=== PATIENT | male | born 2000 | race Caucasian/White ===

== ENCOUNTER 2020-08-08 13:10 | Emergency (ER) | payer OTHER ==
[2020-08-08 13:23] VITALS: BP 140/80
--- NOTE | 2020-08-08 13:37 | ED Physician Documentation ---
History of Present Illness - Stated complaint Stated Complaint: TAIL BONE PX - Chief complaint Chief Complaint: General - History obtained from History obtained from: Patient - Additonal information Additional information: Painful swollen area at the top of the tailbone for about 8 days. No fevers or chills. No history of similar prior issue. He was [place] the [place] and reportedly told that they could not do the procedure till Saturday so was referred here. Review of Systems Constitutional: denies: Fever, Chills Nose: reports: Reviewed and negative Cardiac: reports: Reviewed and negative Respiratory: reports: Reviewed and negative PD PAST MEDICAL HISTORY - Past Medical History Past Medical History: No - Past Surgical History Past Surgical History: No - Present Medications Home Medications: Ambulatory Orders Medication Instructions Recorded Confirmed HYDROcod/ACETAM 5/325 [[place] 5/325] 1 - 2 tab PO Q6H PRN #10 tablet 08/08/20 - Allergies Allergies/Adverse Reactions: Allergies Allergy/AdvReac Type Severity Reaction Status Date / Time No Known Drug Allergies Allergy Verified 08/08/20 13:19 - Social History Does the pt smoke?: No Smoking Status: Never smoker Does the pt drink ETOH?: Yes Does the pt have substance abuse?: No - Immunizations Immunizations are current?: Yes - POLST Patient has POLST: No PD ED PE NORMAL - Vitals Vital signs reviewed: Yes - General General: Alert and oriented X 3, No acute distress - Derm Derm: Other (Large pointed pilonidal cyst top of gluteal crease) - Neuro Neuro: Alert and oriented X 3, Normal speech Results - Vitals Vitals: Vital Signs - 24 hr 08/08/20 13:19 Temperature 36.5 C Heart Rate 85 Respiratory 16 Rate Blood Pressure 140/80 H O2 Saturation 98 Oxygen O2 Source Room air Procedures - Abscess I&D (location) Pilonidal Preparation: Alcohol, Lidocaine 1% Incision: Incised with scalpel, Purulent drainage, Loculations broken, Packed (with 1/4 inch packing) Other: Pt tolerated well, Dressing applied. No: Antibiotic prescribed (per current UTDOL guidelines) Departure - Departure Disposition: Home, Self Care Clinical Impression: Pilonidal cyst with abscess Condition: Good Record reviewed to determine appropriate education?: Yes Instructions: ED Cyst Pilonidal Infected IandD Prescriptions: HYDROcod/ACETAM 5/325 [[place] 5/325] 1 - 2 tab PO Q6H PRN #10 tablet PRN Reason: Pain Comments: Remove packing in 2 days (just yank in the shower). [place]. Explore surgical referral when better for definitive treatment. Forms: Activity restrictions Discharge Date/Time: 08/08/20 13:59
[2020-08-08] MEDS ORDERED: HYDROcod/ACETAM 5/325 MG TABLET PO STA (13:45)
== END 2020-08-08 13:59 | disposition home or self-care (01) ==
LOC: ED 13:10
DX: L05.01 Pilonidal cyst with abscess (principal)
CPT/HCPCS: 10081; 99282; 99283; A9270

== ENCOUNTER 2021-07-18 08:27 | Emergency (ER) | payer OTHER ==
[2021-07-18] MEDS ORDERED: LIDOCAINE 1% 2 ML VIAL TD STA (09:09)
--- NOTE | 2021-07-18 09:34 | ED Physician Documentation ---
History of Present Illness - Stated complaint Stated Complaint: LOWER BACK PX - Chief complaint Chief Complaint: Wound - History obtained from History obtained from: Patient - History of Present Illness Timing: How many days ago (3-4) - Additonal information Additional information: 21-year-old male with a prior history of pilonidal cyst has developed swelling o vaughn his tailbone over the past 3 to 4 days and over the past 2 days the pain has become intolerable. He is having some difficulty sitting. He has had this drained previously and has not sought surgical care. Review of Systems Constitutional: denies: Fever Respiratory: denies: Cough GI: denies: Vomiting : denies: Dysuria Musculoskeletal: denies: Neck pain, Back pain Neurologic: denies: Generalized weakness, Focal weakness, Numbness PD PAST MEDICAL HISTORY - Past Medical History Past Medical History: Yes Cardiovascular: None Respiratory: None Neuro: None Endocrine/Autoimmune: None GI: None : None HEENT: None Psych: None Musculoskeletal: None Derm: None - Past Surgical History Past Surgical History: No - Present Medications Home Medications: Ambulatory Orders Medication Instructions Recorded Confirmed HYDROcod/ACETAM 5/325 [[place] 5/325] 1 - 2 tablet PO Q6H PRN #14 tablet 07/18/21 Sulfamethox/Trimeth 800/160 1 each PO BID #14 tablet 07/18/21 [Bactrim Ds] - Allergies Allergies/Adverse Reactions: Allergies Allergy/AdvReac Type Severity Reaction Status Date / Time No Known Drug Allergies Allergy Verified 08/08/20 13:19 - Social History Does the pt smoke?: Yes Smoking Status: Current some day smoker Does the pt drink ETOH?: Yes Does the pt have substance abuse?: No - Immunizations Immunizations are current?: Yes - POLST Patient has POLST: No PD ED PE NORMAL - Vitals Vital signs reviewed: Yes (hypertensive ) - General General: Alert and oriented X 3, No acute distress, Well developed/nourished - HEENT HEENT: Atraumatic, PERRL, EOMI - Neck Neck: Supple, no meningeal sign - Respiratory Respiratory: No respiratory distress - Derm Derm: Normal color, Warm and dry, No rash, Other (At the termination of the lumbar spine and over the sacrum the skin is swollen, red and tender. No fluctuance. Bedside ultrasound shows fluid just under the skin. 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, No motor deficit, No sensory deficit, Normal speech Eye Opening: Spontaneous Motor: Obeys Commands Verbal: Oriented GCS Score: 15 - Psych Psych: Normal mood, Normal affect Results - Vitals Vitals: Vital Signs - 24 hr 07/18/21 07/18/21 08:34 08:51 Temperature 35.9 C L Heart Rate 87 77 Respiratory 16 16 Rate Blood Pressure 132/79 H 126/70 O2 Saturation 98 97 Oxygen O2 Source Room air Procedures - Abscess I&D (location) pilonidal Preparation: Confirmed with ultrasound, Betadine, Lidocaine 1% Incision: Incised with scalpel, Purulent drainage, Loculations broken, Irrigated, Culture obtained Other: Pt tolerated well, Antibiotic prescribed PD MEDICAL DECISION MAKING - ED course Complexity details: considered differential, d/w patient ED course: 21-year-old male who has had a prior I&D of his pilonidal cyst has another I&D done today. I discussed with the patient a follow-up with surgery when this is healed up for potential removal of the cyst. Today we did not use packing as the patient indicates that have been very irritating previously. We will put him on some antibiotic and some pain medication and give him several days off work. Departure - Departure Disposition: 01 Home, Self Care Instructions: ED Cyst Pilonidal Infected IandD Follow-Up: SAMSON TIRADO MD [Primary Care Provider] [facility] Prescriptions: Sulfamethox/Trimeth 800/160 [Bactrim Ds] 1 each PO BID #14 tablet HYDROcod/ACETAM 5/325 [[place] 5/325] 1 - 2 tablet PO Q6H PRN #14 tablet PRN Reason: Pain Comments: Marshall, today looks like your pilonidal cyst was infected and we have incised and drained pus out of it. When this heals up and is not hurting or swollen follow-up with surgery to consider removal of the cyst sac. This will likely recur if the cyst sac is not eventually removed. There are prescriptions for antibiotic and pain medications E scribed to [facility] in [place]. Forms: Activity restrictions
[2021-07-18] MEDS ORDERED: HYDROcod/ACETAM 5/325 MG TABLET PO STA (09:58)
[2021-07-18 10:04] VITALS: BP 141/90
== END 2021-07-18 10:04 | disposition home or self-care (01) ==
LOC: ED 08:27
DX: L05.01 Pilonidal cyst with abscess (principal); F17.200 Nicotine dependence, unspecified, uncomplicated
CPT/HCPCS: 10080; 87070; 87205; 99283; A9270